=== PATIENT | male | born 1990 | race Two or more races ===

== ENCOUNTER 2022-05-09 10:51 | Emergency (ER) | payer OTHER ==
[2022-05-09 11:24] VITALS: BP 133/91; PULSE 90; RESP 20; TEMP 97.7; BMI 24.3
[2022-05-09] MEDS ORDERED: DEXAMETHASONE SOD PHOSPHATE 10 MG/1 ML VIAL IM ONE (11:38)
[2022-05-09] MEDS ORDERED: DEXAMETHASONE SOD PHOSPHATE 10 MG/1 ML VIAL ONE (11:42)
== END 2022-05-09 11:50 | disposition home or self-care (01) ==
LOC: JERFT 10:51
PROC: 3E023GC Introduction of Other Therapeutic Substance into Muscle, Percutaneous Approach (ICD-10-PCS; principal; 2022-05-09)
DX: R21 Rash and other nonspecific skin eruption (principal)
CPT/HCPCS: 99284-25; J1100

== ENCOUNTER 2022-05-16 12:52 | Emergency (ER) | payer OTHER ==
[2022-05-16 13:10] VITALS: BP 134/97; PULSE 90; RESP 18; TEMP 97.9; BMI 23.6
[2022-05-16] MEDS ORDERED: ACETAMINOPHEN 500 MG TABLET (FP) PO ONE (13:24)
[2022-05-16] MEDS ORDERED: CYCLOBENZAPRINE HCL 10 MG TABLET (FP) PO ONE (13:24)
[2022-05-16] MEDS ORDERED: LIDOCAINE 5% TOPICAL PATCH TP ONE (13:24)
[2022-05-16] MEDS ORDERED: LIDOCAINE PATCH REMOVAL MC SCH (22:00)
== END 2022-05-16 16:06 | disposition home or self-care (01) ==
LOC: JERFT 12:52
DX: M54.50 Low back pain, unspecified (principal)
CPT/HCPCS: 99283-25